=== PATIENT | male | born 1975 | race Caucasian/White ===

== ENCOUNTER 2017-11-18 10:56 | Emergency (ER) | payer BC ==
[~2017-11-18] VITALS: Ht 185.4 cm; Wt 136.1 kg
[~2017-11-18 10:56] MED LIST: ASA81BEC PO; AUGMENTIN 875875 MG; VICODIN 5-5001 EACH
[2017-11-18] MEDS ORDERED: NEXIUM40 MG PO (11:04)
[2017-11-18] MEDS ORDERED: COZAAR 50 MG TA50 M2 PO (11:04)
[2017-11-18] MEDS ORDERED: ATENOLOL 50MG T50 MG PO (11:04)
[2017-11-18 11:28] LABS: ABSOLUTE EOSINOPHILS 0.2 thou/uL (0.0-0.7); ABSOLUTE LYMPHOCYTES 1.3 thou/uL (0.8-5.3); ABSOLUTE MONOCYTES 0.6 thou/uL (0.0-1.2); ABSOLUTE NEUTROPHILS 3.6 thou/uL (1.6-8.1); BASOPHILS 0.6 %; EOSINOPHILS 4.3 %; HEMATOCRIT 43.1 % (42.0-52.0); HEMOGLOBIN 15.2 gm/dL (14.0-18.0); LYMPHOCYTES 21.9 %; MCH 33.4 pg (26.0-34.0); MCHC 35.2 g/dL (28.0-37.0); MONOCYTES 9.6 %; MPV 8.7 fl. (7.2-11.1); NUCLEATED RBCS 0 /100WBC; PLATELET COUNT* 192 thou/uL (150-400); POLYS 63.6 %; RBC 4.54 mil/uL (4.50-6.00); RDW-CV 13.2 % (10.5-14.5); WBC 5.7 thou/uL (4.0-11.0)
[2017-11-18 11:40] LABS: ANION GAP 8 mmol/L (7-16); BUN 16 mg/dL (7-18); CALCIUM 8.6 mg/dL (8.5-10.1); CHLORIDE 100 mmol/L (98-107); CO2 28 mmol/L (21-32); CREATININE 1.1 mg/dL (0.6-1.3); GLUCOSE 127 mg/dL (70-99); POTASSIUM 3.9 mmol/L (3.5-5.1); SODIUM 136 mmol/L (136-145)
[2017-11-18 11:45] LABS: ALBUMIN 3.7 g/dL (3.4-5.0); ALKALINE PHOSPHATASE 72 U/L (46-116); NT-PRO BRAIN NAT PEPTIDE 39 pg/mL (<300); SGOT 28 U/L (15-37); SGPT 47 U/L (30-65); TOTAL BILIRUBIN 0.6 mg/dL (<0.1-1.0); TOTAL PROTEIN 7.2 g/dL (6.4-8.2); TROPONIN-I LEVEL <0.06 ng/mL (<0.06)
[2017-11-18] MEDS ORDERED: VENTOLIN HFA 1818 GM INH (12:04)
[2017-11-18] MEDS ORDERED: PREDNISONE50 MG PO (12:04)
[2017-11-18] MEDS ORDERED: ZPAK PO (12:04)
[2017-11-18 12:18] VITALS: BP 152/81
--- NOTE | 2017-11-18 15:35 | EKG ---
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 : 1975 Requested By: Tor Schwartz Order Number: [id number] MD: Gino Fernández Measurements Intervals [place] Rate: 64 P: ND: QRS: -33 QRSD: 100 T: 21 QT: 389 QTc: 402 Interpretive Statements sinus rhythm Left axis deviation Abnormal R-wave progression, late transition Baseline wander in lead(s) V6 No previous ECG available for comparison Electronically Signed On 11-18-2017 15:35:36 [employer]ATION[employer]ENTICE by Gino Fernández [email or web address] <ELECTRONICALLY SIGNED> By: Gino Fernández MD, [facility] 11/18/17 1535 1101 00 Gino Fernández MD, FACC /EPI
--- NOTE | 2017-11-18 15:37 | EKG ---
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
== END 2017-11-18 12:19 | disposition home or self-care (01) ==
LOC: M.ERS 10:56
PROVIDERS: Emergency Medicine Emergency Medical Services
DX: J40 Bronchitis, not specified as acute or chronic (principal); R09.1 Pleurisy; K21.9 Gastro-esophageal reflux disease without esophagitis; I10 Essential (primary) hypertension